=== PATIENT | female | born 1950 | race Caucasian/White ===

== ENCOUNTER 2023-02-13 08:42 | Emergency (ER) | payer MEDICARE, OTHER, SELFPAY ==
[2023-02-13 09:09] VITALS: BP 162/81; PULSE 74; RESP 18; TEMP 36.6; O2SAT 100
--- NOTE | 2023-02-13 09:20 | ED.BACK ---
HPI - Back Pain/Injury General Chief Complaint: Back Pain/Injury Stated Complaint: Back Pain Time Seen by Provider: 02/13/23 09:02 Source: patient, RN notes reviewed and old records reviewed Mode of arrival: ambulatory Limitations: no limitations History of Present Illness HPI Narrative: 72-year-old female presents to the [facility] with complaints of right lower back pain for about a month. Patient states that she has been 3 hours doing her taxes about a month ago and sat for 3 hours when she tried to get up she had some right lower back pain. 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 Has taken ibuprofen. Denies any loss or retention of bowel or bladder. No saddle anesthesia. No radiation of pain. Walks with a normal gait. Had tried ibuprofen States the pain is better this morning than it was yesterday. Patient is worried because she is leaving on a trip Wednesday, 2 days from now to [place]. PCM at [facility] Onset (ago): week(s) (4) Related Data Home Medications Medication Instructions Recorded Confirmed amlodipine 5 mg tablet 5 mg PO DAILY 02/13/23 02/13/23 divalproex 250 mg tablet,extended 250 mg PO DIRECTED 02/13/23 02/13/23 release 24 hr hydroxychloroquine 200 mg tablet 200 mg PO DIRECTED 02/13/23 02/13/23 latanoprost 0.005 % eye drops 1 drp ophthalmic (eye) DIRECTED 02/13/23 02/13/23 timolol maleate 0.5 % eye drops 1 drp ophthalmic (eye) DIRECTED 02/13/23 02/13/23 Allergies Allergy/AdvReac Type Severity Reaction Status Date / Time No Known Allergies Allergy Verified 02/13/23 08:47 Review of Systems Review of Systems: All systems reviewed & are unremarkable except as noted in HPI and below Constitutional: Constitutional: Reports no additional constitutional complaints Eyes: Eyes: Reports no additional eye complaints ENT: Reports system reviewed and no additional complaints, except as documented Cardiovascular: Cardiovascular: Reports no additional cardiovascular complaints, Denies chest pain and Denies dyspnea Respiratory: Respiratory: Reports no additional respiratory complaints, Denies chest congestion, Denies cough and Denies dyspnea Gastrointestinal: Gastrointestinal: Reports no additional gastrointestinal complaints, Denies abdominal pain, Denies nausea and Denies vomiting Musculoskeletal: Musculoskeletal: Reports as per HPI Integumentary/Breasts: Skin/Breast: Reports system reviewed and no additional complaints, except as docu Neurologic: Reports system reviewed and no additional complaints, except as documented Psychiatric: Psychiatric: Reports no additional psychiatric complaints Allergic/Immunologic: Allergic/Immunologic: Reports no additional allergic/immunologic complaints [facility] Past Medical History Medical History (Updated 02/13/23 @ 09:28 by Daniela Pantoja APRN) Glaucoma History of high blood pressure Migraine Comments At the time of my signature, I reviewed and agree with the nursing past medical, surgical, social, and family history. There is no relevant family history pertinent to the patient complaint. Exam Const: General: cooperative, healthy appearing, comfortable, no acute distress, well developed, alert and well nourished Nutritional Appearance: well nourished and thin Orientation/consciousness: patient oriented x3 Limitations: no limitations HENMT: Head: normal to inspection Ears: hearing grossly normal bilaterally and external ears normal Face/Nose/Sinus: Normal external nose present, Normal nares present, Normal nasal mucous membranes and turbinates present and normal facial exam Face and sinus: normal facial exam Mouth: Yes Normal oral and palatal mucosa present, Yes lip normal and Yes moist mucous membranes Eyes: General: appearance normal, both eyes and all related structures Alignment and Position: alignment normal Periorbital: periorbital findings normal Conjunctivae: conjunctivae normal
== END 2023-02-13 09:45 | disposition home or self-care (01) ==
PROVIDERS: Emergency Provider Nurse Practitioner
DX: S39.012A Strain of muscle, fascia and tendon of lower back, initial encounter (principal); X50.0XXA Overexertion from strenuous movement or load, initial encounter; H40.9 Unspecified glaucoma; I10 Essential (primary) hypertension
CPT/HCPCS: 99213; G0463